=== PATIENT | female | born 1995 | race Caucasian/White ===

== ENCOUNTER 2020-11-15 19:21 | Emergency (ER) | payer OTHER, SELFPAY ==
--- NOTE | ~2020-11-15 | XR_ITS ---
EXAMINATION: XR ankle LT 2V DATE: 11/15/2020 21:28 INDICATION: Left ankle pain and swelling. TECHNIQUE: 2 views of left ankle were obtained. COMPARISON: None. FINDINGS: Bone alignment is normal. No fracture. There is mild osteoarthritis of talonavicular joint. There is anterior ankle soft tissue swelling. IMPRESSION: 1. Mild osteoarthritis of talonavicular joint. Reviewed, dictated and finalized at location A.
[2020-11-15 19:25] VITALS: BP 110/44; PULSE 127; RESP 18; O2SAT 100
--- NOTE | 2020-11-15 19:33 | PC.NURSE ---
No orders in triage per ED MD Ash.
--- NOTE | 2020-11-15 21:04 | ED.WOUNDLAC ---
HPI - Wound/Laceration History of Present Illness HPI narrative: Shireen sustained 2 lacerations to the top of her left foot nearly 2 weeks ago. The wounds were originally sutured. A few days ago she had the sutures removed from one of the wounds and it dehisced. She has moderate pain and a small amount of drainage. The other sutures remain in place. No fever, chills. Related Data Home Medications Medication Instructions Recorded Confirmed clonazepam 0.5 mg tablet 0.5 mg PO TID tablet 10/22/20 docosahexaenoic acid 200 mg capsule mg PO 10/22/20 Allergies Allergy/AdvReac Type Severity Reaction Status Date / Time No Known Allergies Allergy Verified 11/15/20 19:28 Review of Systems Review of Systems: All systems reviewed & are unremarkable except as noted in HPI and below PMFSH Past Medical History Medical History 28 weeks gestation of Anxiety Drug abuse in remission Family History Family History Father AA (alcohol abuse) Depression Sibling Asthma Depression Grandparent Diabetes mellitus Heart disease Depression Hypertension Cerebrovascular accident Acute myocardial infarction Social History Social History Smoking status: Never smoker Alcohol intake: never Substance use: never Gender identity (if verbalized by the patient): Female Spiritual care concerns: No Agree to blood products: Yes Exam Const: General: healthy appearing, no acute distress and alert Orientation/consciousness: patient oriented x3 HENMT: Head: normal to inspection Resp: Effort & Inspection: normal respiratory effort Cardio: Rate: regular rate Rhythm: regular rhythm Other: 2+ Left DP Skin: Other: 2.5 cm laceration to dorsum of left foot with significant separation of wound edges. 1 cm healing laceration with sutures in place Neuro: General: patient oriented x3 and moves all extremities Gait exam (Neuro): Normal gait present Extrem: General: normal to inspection Course Vital Signs Vital signs: Vital Signs Pulse Rate 127 H 11/15/20 19:25 Respiratory Rate 18 11/15/20 19:25 Blood Pressure 110/44 L 11/15/20 19:25 Pulse Oximetry 100 11/15/20 19:25 Pulse Rate 127 H 11/15/20 19:25 Respiratory Rate 18 11/15/20 19:25 Blood Pressure 110/44 L 11/15/20 19:25 Pulse Oximetry 100 11/15/20 19:25 Procedures Laceration Laceration 1: Site: lower extremity Side (If applicable): left (left) Size (cm): 2.5 Description: linear Depth: simple, single layer Local Anesthetic: lidocaine 1% and with epi Amount of anesthesia used (mL): 3 Pre-repair: wound explored and irrigated extensively ====== Skin Level ====== Skin layer closed with: nylon Size (cm): 4-0 Number of sutures: 5 Technique: horizontal mattress (inverting, loose) and other ====== Subcutaneous Layer ====== ====== Muscle Layer ====== ====== Tendon Layer ====== Dressing: sutured over the top loosely to bring edges together without creating tight closer, thus hopefully reducing infection risk Discharge Plan Discharge Clinical Impression: Foot laceration Patient Disposition: Home, Self-Care Condition: Stable Instructions: Antibiotic Form Prescriptions: New clindamycin HCl 300 mg capsule 300 mg PO BID 7 Days Qty: 14 RF: 0 No Action DHA 200 mg capsule PO RF: 0 clonazepam 0.5 mg tablet 0.5 mg PO TID RF: 0 Follow-up/Referrals: Rebecca,Joe Nation MD [Primary Care Provider] -
[2020-11-15] MEDS: CLINDAMYCIN HCL 150 MG CAP 300 MG PO (21:31)
== END 2020-11-15 22:30 | disposition home or self-care (01) ==
PROVIDERS: Emergency Provider Emergency Medicine; PCP Family Medicine
DX: T81.33XA Disruption of traumatic injury wound repair, initial encounter (principal); Z33.1 Pregnant state, incidental
CPT/HCPCS: 12020; 73600; 99283; A9270

== ENCOUNTER 2021-01-08 07:30 | Inpatient (IN) | payer OTHER, SELFPAY ==
[2021-01-08] VITALS (194 sets, daily range): BP systolic 93–144; BP diastolic 42–127; PULSE 25–160; TEMP 36.8–36.9; O2SAT 78–100; BMI 21.3
--- NOTE | 2021-01-08 08:06 | WPDOBADMIT ---
Obstetrics - Admit Note Admission Note: record reviewed. No pertinent additions to the history and/or any subsequent changes in the physical findings that are not consistent with the expected course of the were found. MIL 2 vessel cord, + drug use in , hepatitis C+, nursery aware, SVE 1-260/-2 Additions to the history and/or subsequent changes in the physical findings follow. None.
[2021-01-08 08:48] LABS: Basophils Absolute Auto 0.1 K/mm3 (0.0-0.1); Basophils Percent Auto 1.2 % (0.2-1.2); Eosinophils Absolute Auto 0.2 K/mm3 (0-0.3); Eosinophils Percent Auto 3.3 % (0-4.4); Hematocrit 31.2 % (37.0-47.0); Hemoglobin 9.1 g/dL (12.0-15.0); Immature Granulocyte Absolute 0.04 K/mm3 (0.00-0.031); Immature Granulocyte Percent A 0.8 % (0-0.5); Lymphocytes Absolute Auto 1.37 K/mm3 (0.9-3.2); Lymphocytes Percent Auto 26.8 % (18.3-44.2); Mean Corpuscular HGB Conc 29.2 g/dl (32-36); Mean Corpuscular Hemoglobin 22.2 pg (26-34); Mean Corpuscular Volume 76.3 fl (80-100); Mean Platelet Volume 9.1 fl (7.4-10.4); Monocytes Absolute Auto 0.5 K/mm3 (0.1-0.6); Monocytes Percent Auto 9.4 % (2.6-8.5); Neutrophils Percent Auto 58.5 % (45.5-73.1); Platelet Count Result 212 k/mm3 (150-375); Red Blood Count 4.09 M/mm3 (4.2-5.4); Red Cell Distribution Width 16.7 % (11.5-14.5); White Blood Count 5.1 K/mm3 (4.5-10.0)
[2021-01-08] MEDS: LACTATED RINGERS 1,000 ML 125 ML IV CONT (08:56)
[2021-01-08] MEDS: OXYTOCIN 30 UNITS/NS 500 ML 30 UNITS/500 ML BAG IV CONT (08:57)
[2021-01-08 09:19] LABS: Amphetamine Screen Urine Negative (Negative); Barbiturate Screen Urine Negative (Negative); Benzodiazepines Screen Urine Negative (Negative); Cannabinoid Screen Urine Negative (Negative); Cocaine Screen Urine Negative (Negative); Methadone Screen Urine Negative (Negative); Opiate Screen Urine Negative (Negative); Phencyclidine Screen Urine Negative (Negative)
[2021-01-08 09:20] LABS: Platelet Estimate Adequate (Adequate)
--- NOTE | 2021-01-08 10:13 | WPDANESEPP ---
Anes - Eval Pre Procedure Procedure: labor epidural Date/Time: 01/08/21 10:13 Preop Diagnosis: labor pain Pre Op Diagnosis: Induction of Labor Patient Data Age: 25 Gender: F Height: 1.73 m Weight: 63.6 kg Last Vital Signs Pulse 86 01/08/21 10:00 BP 118/75 01/08/21 10:00 Allergies Allergy/AdvReac Type Severity Reaction Status Date / Time No Known Allergies Allergy Verified 01/08/21 08:58 Home Medications Medication Instructions Recorded Confirmed Type clonazepam 0.5 mg tablet 0.5 mg PO TID tablet 10/22/20 01/08/21 History docosahexaenoic acid 200 mg capsule 200 mg PO DAILY 10/22/20 01/08/21 History ferrous sulfate [Iron (ferrous 325 mg PO DAILY 01/01/21 01/08/21 History sulfate)] Laboratory Tests 01/08/21 01/08/21 01/08/21 08:22 08:22 08:22 WBC 5.1 K/mm3 K/mm3 (4.5-10.0) RBC 4.09 M/mm3 L M/mm3 (4.2-5.4) Hgb 9.1 g/dL L g/dL (12.0-15.0) Hct 31.2 % L % (37.0-47.0) MCV 76.3 fl L fl (80-100) MCH 22.2 pg L pg (26-34) MCHC 29.2 g/dl L g/dl (32-36) RDW 16.7 % H % (11.5-14.5) Plt Count 212 k/mm3 k/mm3 (150-375) MPV 9.1 fl fl (7.4-10.4) Immature Gran % (Auto) 0.8 % H % (0-0.5) Neut % (Auto) 58.5 % % (45.5-73.1) Lymph % (Auto) 26.8 % % (18.3-44.2) [place] % (Auto) 9.4 % H % (2.6-8.5) Eos % (Auto) 3.3 % % (0-4.4) Baso % (Auto) 1.2 % % (0.2-1.2) Lymph # (Auto) 1.37 K/mm3 K/mm3 (0.9-3.2) [place] # (Auto) 0.5 K/mm3 K/mm3 (0.1-0.6) Eos # (Auto) 0.2 K/mm3 K/mm3 (0-0.3) Baso # (Auto) 0.1 K/mm3 K/mm3 (0.0-0.1) Abs Immat Gran (auto) 0.04 K/mm3 H K/mm3 (0.00-0.031) Absolute Neuts (auto) 3.0 K/mm3 K/mm3 (1.3-6.7) Absolute Nucleated RBC 0.0 K/mm3 K/mm3 (0.0-0.012) Nucleated RBC % 0.0 % % (0.0-0.2) Platelet Estimate Adequate (Adequate) Urine Opiates Screen Negative (Negative) Urine Methadone Screen Negative (Negative) Ur Barbiturates Screen Negative (Negative) Ur Phencyclidine Scrn Negative (Negative) Ur Amphetamine Screen Negative (Negative) U Benzodiazepines Scrn Negative (Negative) Urine Cocaine Screen Negative (Negative) U Cannabinoids Screen Negative (Negative) RPR Pending Blood Type Antibody Screen 01/08/21 08:22 WBC RBC Hgb Hct MCV MCH MCHC RDW Plt Count MPV Immature Gran % (Auto) Neut % (Auto) Lymph % (Auto) [place] % (Auto) Eos % (Auto) Baso % (Auto) Lymph # (Auto) [place] # (Auto) Eos # (Auto) Baso # (Auto) Abs Immat Gran (auto) Absolute Neuts (auto) Absolute Nucleated RBC Nucleated RBC % Platelet Estimate Urine Opiates Screen Urine Methadone Screen Ur Barbiturates Screen Ur Phencyclidine Scrn Ur Amphetamine Screen U Benzodiazepines Scrn Urine Cocaine Screen U Cannabinoids Screen RPR Blood Type B Positive Antibody Screen Negative : gestational age () Patient hx anesthesia problems: none Family hx anesthesia problems: none Results Review: All pre-operative results and documents have been reviewed as part of the pre-operative evaluation. [facility] Past Medical History Medical History 28 weeks gestation of Anxiety Drug abuse in remission Family History Family History Father AA (alcohol abuse) Depression Sibling Asthma Depression Grandparent Diabetes mellitus Heart disease Depression Hypertension
[2021-01-08] MEDS: LACTATED RINGERS 1,000 ML 999 ML IV CONT ×2 (10:36→13:29)
[2021-01-08 11:03] LABS: Rapid Plasma Reagin Non-Reactive (NonReactive)
--- NOTE | 2021-01-08 14:22 | PM.OBPNLAB ---
Pain Control Date/time seen: 01/08/21 14:22 SVE 2-3/60/-2 arom min amount of clear odorless fluid
[2021-01-08] MEDS: LORATADINE 10 MG TABLET PO (17:44)
--- NOTE | 2021-01-08 20:25 | PM.OBPRVD ---
OB - Delivery Note Procedure Delivery date: 01/08/21 Procedure: vaginal delivery events: No Care (limited) and Meconium Stained Fluid Intrapartal events: None Induction method: AROM and per pitocin protocol Delivery monitor: external FHT and external uterine Route of delivery: Episiotomy description: None Laceration Description: None Specimen: Yes Quantitative Blood Loss (ml): 35 Anesthesia type: Epidural Disposition: floor Baby Date of : 01/08/21 Time of : 20:18 Weeks of gestation at delivery: 39 gender: Male presentation: vertex position: Right Occiput Anterior Placenta delivery description: Spontaneous cord vessel description: 2 Vessels and Clamped/Cut score one minute: 7 score five minutes: 9 Narrative: baby to warmer and in stable condition
[2021-01-08] MEDS: OXYTOCIN 30 UNITS/NS 500 ML 30 UNITS/500 ML BAG 125 UNITS IV CONT (20:48)
[2021-01-08] MEDS: WITCH HAZEL 40 PADS 1 PAD TOPICAL (23:02)
[2021-01-08] MEDS: BENZOCAINE 20% AER SPR (*SP) 56 GM CAN 1 SPRAY TOPICAL (23:02)
[2021-01-08] MEDS: IBUPROFEN 600 MG TABLET PO (23:02)
[2021-01-09] VITALS (10 sets, daily range): BP systolic 94–119; BP diastolic 54–72; PULSE 60–106; RESP 16–18; TEMP 36.3–37.4; O2SAT 96–99
[2021-01-09 04:52] LABS: Hematocrit 29.8 % (37.0-47.0); Hemoglobin 9.2 g/dL (12.0-15.0)
--- NOTE | 2021-01-09 06:23 | P.PNOB_ITS ---
OB - PN: Subj Subjective Date/time seen: 01/09/21 06:23 Patient comments: no complaints baby status: doing well OB - PN: Obj Data Labs CBC & Chem 7: 01/09/21 04:38 Labs: Laboratory Results - last 24 hr 01/08/21 01/08/21 01/08/21 08:22 08:22 08:22 WBC 5.1 RBC 4.09 L Hgb 9.1 L Hct 31.2 L MCV 76.3 L MCH 22.2 L MCHC 29.2 L RDW 16.7 H Plt Count 212 MPV 9.1 Immature Gran % (Auto) 0.8 H Neut % (Auto) 58.5 Lymph % (Auto) 26.8 [place] % (Auto) 9.4 H Eos % (Auto) 3.3 Baso % (Auto) 1.2 Lymph # (Auto) 1.37 [place] # (Auto) 0.5 Eos # (Auto) 0.2 Baso # (Auto) 0.1 Abs Immat Gran (auto) 0.04 H Absolute Neuts (auto) 3.0 Absolute Nucleated RBC 0.0 Nucleated RBC % 0.0 Platelet Estimate Adequate Urine Opiates Screen Negative Urine Methadone Screen Negative Ur Barbiturates Screen Negative Ur Phencyclidine Scrn Negative Ur Amphetamine Screen Negative U Benzodiazepines Scrn Negative Urine Cocaine Screen Negative U Cannabinoids Screen Negative RPR Non-reactive Blood Type Antibody Screen 01/08/21 01/09/21 08:22 04:38 WBC RBC Hgb 9.2 L Hct 29.8 L MCV MCH MCHC RDW Plt Count MPV Immature Gran % (Auto) Neut % (Auto) Lymph % (Auto) [place] % (Auto) Eos % (Auto) Baso % (Auto) Lymph # (Auto) [place] # (Auto) Eos # (Auto) Baso # (Auto) Abs Immat Gran (auto) Absolute Neuts (auto) Absolute Nucleated RBC Nucleated RBC % Platelet Estimate Urine Opiates Screen Urine Methadone Screen Ur Barbiturates Screen Ur Phencyclidine Scrn Ur Amphetamine Screen U Benzodiazepines Scrn Urine Cocaine Screen U Cannabinoids Screen RPR Blood Type B Positive Antibody Screen Negative OB - PN A/P Plan day: 1 Plan: routine care Time Spent With Patient Time: Total time spent is greater than 50% in coordination of care (as documented) at patient's floor/unit and/or counseling patient: Review of Systems Review of Systems: All systems reviewed & are unremarkable except as noted in HPI and below Exam Const: General: cooperative, healthy appearing and comfortable Psych: Attitude: cooperative Thought process: Normal thought process present Thought content: Yes Normal thought content present Insight: Good insight present (Psych)
[2021-01-09] MEDS: IBUPROFEN 600 MG TABLET PO ×3 (08:45→22:14)
[2021-01-09] MEDS: POLYSACCHARIDE IRON COMPLEX 150 MG CAPSULE PO ×2 (08:45→17:58)
[2021-01-09] MEDS: MULTIVIT/MIN/PREN/FOL AC/IRON TABLET 1 TAB PO (08:46)
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
--- NOTE | 2021-01-09 15:26 | OBPPTRN ---
Patient transferred to post room #285 via wheelchair. Support person present. Oriented to unit, room, information board, rooming in, admission packet and security measures. Patient verbalizes understanding. with patient.
[2021-01-09] MEDS: clonazePAM (*CRX) 0.5 MG TABLET PO (22:14)
[2021-01-10] MEDS: POLYSACCHARIDE IRON COMPLEX 150 MG CAPSULE PO (07:34)
[2021-01-10 07:35] VITALS: BP 101/67; PULSE 68; RESP 12; TEMP 36.4; O2SAT 100
[2021-01-10] MEDS: clonazePAM (*CRX) 0.5 MG TABLET PO (07:35)
[2021-01-10] MEDS: IBUPROFEN 600 MG TABLET PO (07:35)
--- NOTE | 2021-01-10 10:32 | PM.OBPNVD ---
OB - PN: Subj Subjective Date/time seen: 01/10/21 10:32 Patient comments: no complaints baby status: doing well OB - PN: Obj Data Labs CBC & Chem 7: 01/09/21 04:38 OB - PN A/P Plan day: 2 Plan: routine care and discharge home Time Spent With Patient Time: Total time spent is greater than 50% in coordination of care (as documented) at patient's floor/unit and/or counseling patient: Review of Systems Review of Systems: All systems reviewed & are unremarkable except as noted in HPI and below Exam Const: General: cooperative, healthy appearing and comfortable Psych: Affect: normal affect Attitude: cooperative Thought process: Normal thought process present Thought content: Yes Normal thought content present Insight: Good insight present (Psych) Judgement: Good judgement present (Psych)
--- NOTE | 2021-01-10 10:33 | P.DS_ITS ---
DS: Admitting Diagnosis Discharge Date 01/10/21 Admitting Diagnosis MIL OB - DS: Summary OB Procedures : None OB Procedures Intrapartum: Spontaneous Vag Delivery OB Procedures: : None Time Spent with Patient Time attestation: Total time spent providing and/or coordinating discharge services: DS: Data Data Completed and Pending Pending studies at discharge: Pending at discharge 01/08/21 20:22 Surgical [PTH] Routine Discharge Plan Discharge Attending physician on discharge: Mel Campos Discharging Clinician: Michela Sin Patient Disposition: Home, Self-Care Activity: pelvic rest Diet: regular Patient Instructions: Antibiotic Form Stand Alone Forms: General Discharge Information Follow-up/Referrals: Michela Sin, SHONAM [Certified Nurse Access Services Assistant] - 4 Weeks Discharge Medications: Continued DHA 200 mg capsule 200 mg PO DAILY RF: 0 clonazepam 0.5 mg tablet 0.5 mg PO TID RF: 0 ferrous sulfate [Iron (ferrous sulfate)] 325 mg (65 mg iron) Tablet 325 mg PO DAILY RF: 0 Date of admission: 01/08/21 07:30 Primary Care Provider: Rebecca,Joe Nation Admitting Provider: Mel Campos Attending physician on admission: Mel Campos Condition: Stable
--- NOTE | 2021-01-10 12:36 | PC.NURSE ---
1229 Carolina from Care Coordination called and stated that DCFS said the may be D/C'd home with the Mother.
== END 2021-01-10 14:36 | disposition home or self-care (01) | DRG 560 ==
LOC: ANHLDR 07:40 → ANHOBPP 23:29 → ANHOB2 01-09 15:31
PROVIDERS: Admitting Provider Obstetrics & Gynecology; PCP Family Medicine; Referring Provider Advanced Practice Midwife; Visit Provider Obstetrics & Gynecology
DX: O77.0 Labor and delivery complicated by meconium in amniotic fluid (principal); O98.42 Viral hepatitis complicating childbirth; B19.20 Unspecified viral hepatitis C without hepatic coma; Z3A.39 39 weeks gestation of pregnancy; Z37.0 Single live birth
CPT/HCPCS: 36415; 80307; 85014; 85018; 85025; 86592; 86850; 86900; 86901; 88307; A9270; J2590; J2795; J7120